=== PATIENT | male | born 1935 | race Caucasian/White ===

== ENCOUNTER → 2018-03-26 | Outpatient (CLI) | payer MEDICARE, BC ==
[2018-03-26 10:01] LABS: HCT 51.5 % (39.0-53.0); MCV 99.9 fL (80.0-100.0); Platelet Count 244 k/uL (150-450); RBC 5.15 m/uL (4.30-5.90); RDW 12.9 % (11.5-15.5); WBC 6.4 k/uL (3.8-10.6)
[2018-03-26 10:16] LABS: Calcium 9.7 mg/dL (8.4-10.2); Partial Thromboplastin Time 24.8 sec (22.0-30.0); Potassium 4.5 mmol/L (3.5-5.1); Prothrombin Time 10.3 sec (9.0-12.0); Total Bilirubin 1.9 mg/dL (0.2-1.3); Total Protein 7.2 g/dL (6.3-8.2)
[2018-03-26 10:24] LABS: Appearance,Urine Clear (Clear); Bilirubin,Urine Negative (Negative); Blood,Urine Negative (Negative); Color,Urine Yellow; Glucose,Urine (UA) Negative (Negative); Ketones,Urine Negative (Negative); Leukocyte Esterase,Urine Trace (Negative); Mucus,Urine Few /hpf; Nitrite,Urine Negative (Negative); PH, Urine 5.5 (5.0-8.0); Protein,Urine Negative (Negative); RBC,Urine 1 /hpf (0-5); Specific Gravity,Urine 1.018 (1.001-1.035); Squamous Epithelial Cell,Urine 1 /hpf (0-4); Urobilinogen,Urine <2.0 mg/dL (<2.0); WBC,Urine 3 /hpf (0-5)
== END | disposition home or self-care (01) ==
LOC: LABPAT 08:40
PROVIDERS: ATTEND Orthopaedic Surgery
DX: Z01.818 Encounter for other preprocedural examination (principal); Z01.812 Encounter for preprocedural laboratory examination
CPT/HCPCS: 80053; 81001; 85027; 85610; 85730; 86850; 86900; 86901; 87070; 93005

== ENCOUNTER 2018-04-06 06:18 | Inpatient (IN) | payer MEDICARE, BC ==
[2018-04-01 08:37] VITALS: BMI 25.0
[~2018-04-06 06:18] MED LIST: ACETAMINOPHEN TAB 500 MG TAB PO ONE; DEXAMETHASONE SOD PHOSPHATE 10 MG/ML 1 ML VIAL IV ONE; LIDOCAINE 1% 20 ML VIAL (10MG/ML) FOR IV START INTRADERMA PRN; MELOXICAM 7.5 MG TAB PO ONE; MIDAZOLAM (PF) 2 MG/2 ML VIAL IV PRN; ONDANSETRON 4 MG/2 ML VIAL IVP ONE; ROPIVACAINE 246.25 MG, EPINEPHrine 0.5 MG, KETOROLAC 30 MG, cloNIDine HCL/PF 80 MCG, WA... MISCELLANE ONE; SCOPOLAMINE 1.5MG/72HR PATCH TRANSDERM ONE; TRANEXAMIC ACID 1,000 MG in SODIUM CHLORIDE 0.9% 50 ML IVPB ONE; ceFAZolin IN SWFI 2 GM/20 ML SYRINGE IVP ONE
[2018-04-06] MEDS: LACTATED RINGERS 1,000 ML IV SCH (08:00)
[2018-04-06] MEDS ORDERED: hydrOXYzine PAMOATE 25 MG CAP PO PRN (08:37)
[2018-04-06] MEDS ORDERED: NALOXONE 0.4 MG/ML 1 ML VIAL IV PRN (08:37)
[2018-04-06] MEDS ORDERED: MAGNESIUM HYDROXIDE 2,400 MG/10 ML CUP PO PRN (08:37)
[2018-04-06] MEDS ORDERED: DIAZEPAM 5 MG TAB PO PRN (08:37)
[2018-04-06] MEDS ORDERED: HYDROmorphone 0.5 MG/0.5 ML SYRINGE IVP PRN ×3 (08:37)
[2018-04-06] MEDS ORDERED: ONDANSETRON 4 MG/2 ML VIAL IVP PRN (08:37)
[2018-04-06] MEDS ORDERED: PROPOFOL 10 MG/ML 20 ML VIAL IV ONE (09:04)
[2018-04-06] MEDS ORDERED: MIDAZOLAM 2 MG/2 ML VIAL ONE (09:04)
[2018-04-06] MEDS ORDERED: ePHEDrine SULFATE/0.9% NACL/PF 50 MG/5 ML SYRINGE IV ONE (09:04)
[2018-04-06] MEDS ORDERED: PHENYLEPHRINE-0.9% NACL SYG 1 MG/10 ML SYRINGE ONE (09:04)
[2018-04-06] MEDS ORDERED: SODIUM CHLORIDE 0.9% 100 ML BAG ONE (09:04)
[2018-04-06] MEDS ORDERED: TRANEXAMIC ACID 1,000 MG/10 ML VIAL ONE (09:04)
[2018-04-06] MEDS ORDERED: ceFAZolin 3,000 MG in SODIUM CHLORIDE 0.9% IRRIGATIO 3,000 ML IRRIGATION ONE (09:36)
[2018-04-06] MEDS ORDERED: LACTATED RINGERS 1,000 ML IV ONE (09:40)
--- NOTE | 2018-04-06 10:31 | P.OP ---
Date of Procedure: 04/06/18 Preoperative Diagnosis: Severe osteoarthritis left hip Postoperative Diagnosis: Severe osteoarthritis left hip Procedure(s) Performed: Left total hip arthroplasty with a direct anterior approach Implants: Fry and nephew Polarstem size 5 standard Fry & Nephew R3, 3 hole acetabular shell, 56 mm Fry & Nephew reflection 6.5 mm cancellus screw, 20 mm 2 Fry & Nephew R3, XLPE 20 acetabular liner Fry & Nephew Oxinium femoral head 36 m, +4 All components were press-fit. The articulation is Oxinium on polyethylene. Anesthesia: spinal Surgeon: Celestino Willis Pole Tester #1: Elizabeth Seaman Estimated Blood Loss (ml): 200 (59 mL returned with Cell Saver) Pathology: other (Femoral head) Condition: stable Disposition: PACU Indications for Procedure: After failure of conservative treatment we discussed the surgical and nonsurgical treatment options at length. Patient wishes to proceed with a total hip arthroplasty with a direct anterior approach. Complications specific to this procedure were discussed at length, including but not limited to infection, leg length discrepancy, dislocation, and nerve injury. Patient is aware of all these complications and informed consent was obtained Operative Findings: The operative findings are consistent with severe osteoarthritis of the left hip Description of Procedure: Patient was seen and evaluated in the preoperative area, consent was reviewed, and the surgical site was marked with a skin marker. Patient was then brought to the operating room and given prophylactic antibiotics intravenously. 1 g of Tranexamic acid was also given. A spinal anesthetic was administered by the anesthesia department. The patient was then placed on the [place] table with the bony prominences well-padded. The hip area was then prepped and draped in usual sterile fashion. A universal timeout was then performed, which confirmed the patient's name, surgical site, ALLERGIES, and procedure being performed. Next the incision site was located at 1 cm distal and 1 cm lateral to the anterior superior iliac spine. The skin and subcutaneous tissues were sharply incised. Incision was carefully dissected down to the fascia overlying the tensor fascia madonna muscle. This fascia was then incised in line with the incision. Next, using blunt finger dissection, the tensor fascia madonna muscle was dissected off its investing fascia. The muscle was then carefully retracted laterally with a cobra retractor over the lateral neck of the femur. Next, the circumflex vessels were identified and cauterized using the AquaMantis device. The anterior hip capsule was then exposed. The capsule was then opened and an inverted T fashion. Cobra retractors were then placed intracapsularly. The proximal femur was then visualized. The femoral neck was then osteotomized appropriate level above the lesser trochanter. Small amount of traction was placed with the [place] table. A small wedge of bone was then removed from the remaining femoral head. Next, using a corkscrew femoral head was easily removed from the acetabulum. On gross visual inspection, the femoral head had complete loss of articular cartilage in multiple periarticular osteophytes. Attention was then turned to the acetabulum. the acetabulum was exposed and any remaining labrum was excised. Sequential reaming of the acetabulum was performed using fluoroscopic guidance. When the appropriate size was reached, a trial was then placed. The position and fit of the trial was checked with fluoroscopy. The trial was then removed. Then, using fluoroscopic guidance, the final implant was impacted at 20 of anteversion and 40 of abduction, and fully seated in the acetabulum. 2 screws were then placed in the acetabulum. Again fluoroscopy was used to check position of the screws. Next, the liner was then impacted, with a 20 elevated liner located in the anterior superior quadrant. Component locking was confirmed. Attention was then directed to the femur. With the aid of the [place] table, the femur was externally rotated to approximately 130, extended, and abducted under the opposite leg. A side hook was then placed under the proximal femur, and the side hook elevator was used to elevate the proximal femur. Retractors were then placed. A capsular release was performed, as well as a release of the conjoined tendon, which afforded excellent visualization of the proximal femur. Next, a box osteotome was used to lateralize the proximal femur. A hand tennis ball coverer was then used to locate the femoral canal. Sequential broaching was then performed with appropriate size which afforded excellent fixation in the proximal femur. A trial was then placed with appropriate head and neck, and the hip was gently reduced with the aid of the [place] table. Fluoroscopy was then used to check position of the components, as well as to ensure equal leg lengths. The hip was then gently dislocated and the trials were then removed. Final implants were then impacted and the hip was again reduced. Final fluoroscopic x-rays confirmed that the components were in anatomic position, as well as equal leg lengths. The hip was also taken through range of motion, and found to be stable. The hip was then copiously irrigated with antibiotic solution with pulsatile lavage. The hip was then irrigated with Irrisept solution. The soft tissues were then injected with a ropivacaine solution, which consisted of 246.25 mg of ropivacaine, 0.5 mg of epinephrine, 30 mg of Toradol, 80 g of clonidine, and 48.45 mL of sterile water, for a total of 100 mL of fluid injected. A second dose of 1 g of Tranexamic acid was also given. the fascia was then closed with 2-0 strata fix suture. The subcutaneous tissue was closed with 3-0 Vicryl. The subcuticular tissue was closed with 3-0 strata fix suture. The skin was then closed with Dermabond glue and a sterile silver dressing. The patient was then transferred to the recovery room in stable condition. The event sales assistant MARTHA Quintero was required due to the complexity of surgery, and the need for skilled surgical aides teacher for positioning, draping, exposure, retraction, and closure of the wound.
[2018-04-06] MEDS: HYDROmorphone 0.5 MG/0.5 ML SYRINGE IVP PRN ×2 (11:22→11:28)
--- NOTE | 2018-04-06 11:22 | XR ---
EXAMINATION TYPE: XR Hip Limited LT DATE OF EXAM: 04/06/2018 COMPARISON: NONE HISTORY: 82-year-old male status post hip surgery, assess surgical alignment TECHNIQUE: Single AP view FINDINGS: Image shows placement of left hip total arthroplasty. Both acetabular cup and femoral short stemmed c omponents of the prosthesis appear well seated without periprosthetic fracture. Alignment grossly regi tomic. There is soft tissue air compatible with recent operation. IMPRESSION: Uncomplicated postoperative appearance left total hip arthroplasty.
[2018-04-06] MEDS ORDERED: diphenhydrAMINE 50 MG/ML 1 ML VIAL IVP ONE (11:47)
[2018-04-06] MEDS ORDERED: fentaNYL (PF) 50 MCG/ML 2 ML AMP IVP ONE (11:50)
--- NOTE | 2018-04-06 12:53 | FL ---
EXAMINATION TYPE: FL guidance operating room, XR Hip Limited LT DATE OF EXAM: 04/06/2018 COMPARISON: NONE HISTORY: 82-year-old male left hip arthroplasty FINDINGS: 2 intraoperative fluoroscopic images during left hip total arthroplasty. Fluoroscopy time of 42 seconds was used during left hip arthroplasty. 2 image/s document/s [email or web address] [email or web address]. IMPRESSION: Intraoperative fluoroscopy as above.
[2018-04-06] MEDS: SODIUM CHLORIDE 0.9% 1,000 ML IV SCH ×2 (13:43→23:51)
[2018-04-06] MEDS: ceFAZolin IN SWFI 2 GM/20 ML SYRINGE IVP SCH ×2 (15:57→23:50)
[2018-04-06] MEDS: ASPIRIN 325 MG TAB PO SCH (22:07)
[2018-04-06] MEDS: SENNOSIDES-DOCUSATE SODIUM 1 EACH TAB PO SCH (22:07)
[2018-04-07] MEDS: LACTATED RINGERS 1,000 ML IV SCH (04:31)
[2018-04-07] MEDS: HYDROcodone/APAP 5-325MG 1 EACH TAB PO PRN ×2 (07:53→14:38)
--- NOTE | 2018-04-07 08:34 | P.PN ---
Subjective Progress Note Date: 04/07/18 This is an 82-year-old male who is status post left total hip arthroplasty. This is postoperative day #1. Patient is seen and evaluated at bedside with Dr. Celestino Willis. Patient states that his pain is under control today and he has been up and walking. Patient denies any fever/chills, numbness, weakness, tingling, abdominal pain, shortness of breath or chest pain. Objective - Vital Signs Vital signs: Vital Signs Temp 98.1 F 04/07/18 07:17 Pulse 82 04/07/18 07:17 Resp 18 04/07/18 07:17 BP 125/78 04/07/18 07:17 Pulse Ox 92 L 04/07/18 07:17 Intake & Output 04/06/18 04/07/18 04/07/18 18:59 06:59 18:59 Intake Total 2801 400 Output Total 200 Balance 2601 400 Weight 83.915 kg Intake: IV 2801 Intake, IV Titration 400 Amount Sodium Chloride 0.9% 1, 400 000 ml @ 65 mls/hr IV . [id number] [facility] Rx#:[id number] Output: Estimated Blood Loss 200 Other: Voiding Method Toilet # Voids 1 - Exam Vital signs are stable. Patient is in no acute distress and is alert and oriented 3. Calf is soft and nontender to palpation. Dressing is clean, dry, and intact. Patient has full foot and ankle motion without pain or difficulty. Neurovascular status and circulatory status are intact. Assessment and Plan (1) Primary osteoarthritis of left hip Current Visit: Yes Status: Acute Code(s): M16.12 - UNILATERAL PRIMARY OSTEOARTHRITIS, LEFT HIP SNOMED Code(s): 605471807 (2) Status post total hip replacement, left Current Visit: Yes Status: Acute Code(s): Z96.642 - PRESENCE OF LEFT ARTIFICIAL HIP JOINT SNOMED Code(s): 921985423263 Plan: Continue routine postop care. Continue antocoagulation with aspirin. Weightbearing as tolerated with a walker Leave dressing in place for 10 days. Patient is awaiting ECF placement.
[2018-04-07] MEDS: MELOXICAM 7.5 MG TAB PO SCH (09:56)
[2018-04-07] MEDS: ASPIRIN 325 MG TAB PO SCH ×2 (09:56→20:23)
[2018-04-07 10:58] LABS: Basophils % (A) 0 %; Eosinophils # (A) 0.1 k/uL (0-0.7); Eosinophils % (A) 1 %; HCT 41.3 % (39.0-53.0); Lymphocytes # (A) 0.8 k/uL (1.0-4.8); Lymphocytes % (A) 10 %; MCH 32.4 pg (25.0-35.0); MCHC 32.8 g/dL (31.0-37.0); MCV 99.1 fL (80.0-100.0); Mean Platelet Volume 7.5; Monocytes # (A) 0.7 k/uL (0-1.0); Monocytes % (A) 8 %; Neutrophils # (A) 6.4 k/uL (1.3-7.7); Neutrophils % (A) 80 %; Platelet Count 206 k/uL (150-450); RBC 4.17 m/uL (4.30-5.90); RDW 12.8 % (11.5-15.5)
[2018-04-07 11:23] LABS: HGB 13.5 gm/dL (13.0-17.5)
[2018-04-07] MEDS: SODIUM CHLORIDE 0.9% 1,000 ML IV SCH (18:46)
[2018-04-07] MEDS: SENNOSIDES-DOCUSATE SODIUM 1 EACH TAB PO SCH (20:23)
[2018-04-07] MEDS: ZOLPIDEM 5 MG TAB PO SCH (21:37)
[2018-04-08] MEDS: HYDROcodone/APAP 5-325MG 1 EACH TAB PO PRN ×2 (01:34→07:19)
[2018-04-08] MEDS: LACTATED RINGERS 1,000 ML IV SCH (03:50)
[2018-04-08] MEDS: MELOXICAM 7.5 MG TAB PO SCH (07:18)
[2018-04-08] MEDS: ASPIRIN 325 MG TAB PO SCH ×2 (07:18→20:31)
[2018-04-08] MEDS: SODIUM CHLORIDE 0.9% 1,000 ML IV SCH ×2 (07:19→23:23)
--- NOTE | 2018-04-08 07:45 | P.PN ---
Subjective Progress Note Date: 04/08/18 This is an 82-year-old male who is status post left total hip arthroplasty. This is postoperative day #2. Patient is seen and evaluated at bedside. Patient does report pain in the left hip today. Patient denies any new complaints. Patient denies any fever/chills, numbness, weakness, tingling, abdominal pain, shortness of breath or chest pain. Objective - Vital Signs Vital signs: Vital Signs Temp 97.8 F 04/08/18 01:30 Pulse 89 04/08/18 01:30 Resp 16 04/08/18 01:30 BP 126/75 04/08/18 01:30 Pulse Ox 92 L 04/08/18 01:30 Intake & Output 04/07/18 04/08/18 04/08/18 18:59 06:59 18:59 Intake Total 100 830 Balance 100 830 Intake: Intake, IV Titration 100 Amount Sodium Chloride 0.9% 1, 100 000 ml @ 65 mls/hr IV . [id number] [facility] Rx#:[id number] Oral 830 Other: Voiding Method Toilet # Voids 1 - Exam Vital signs are stable. Patient is in no acute distress and is alert and oriented 3. Calf is soft and nontender to palpation. Dressing is clean, dry, and intact. Patient has full foot and ankle motion without pain or difficulty. Neurovascular status and circulatory status are intact. - Labs CBC & Chem 7: 04/07/18 10:36 Labs: Abnormal Lab Results - Last 24 Hours (Table) 04/07/18 Range/Units 10:36 RBC 4.17 L (4.30-5.90) m/uL Lymphocytes # 0.8 L (1.0-4.8) k/uL Assessment and Plan (1) Primary osteoarthritis of left hip Current Visit: Yes Status: Acute Code(s): M16.12 - UNILATERAL PRIMARY OSTEOARTHRITIS, LEFT HIP SNOMED Code(s): 868826068 (2) Status post total hip replacement, left Current Visit: Yes Status: Acute Code(s): Z96.642 - PRESENCE OF LEFT ARTIFICIAL HIP JOINT SNOMED Code(s): 302787679661 Plan: Continue routine postop care. Continue antocoagulation with aspirin. Weightbearing as tolerated with a walker. Leave dressing in place for 10 days. Patient is awaiting ECF placement.
[2018-04-08] MEDS: ZOLPIDEM 5 MG TAB PO SCH (20:31)
[2018-04-08] MEDS: SENNOSIDES-DOCUSATE SODIUM 1 EACH TAB PO SCH (20:31)
[2018-04-09] MEDS: LACTATED RINGERS 1,000 ML IV SCH (06:10)
[2018-04-09 07:11] LABS: Basophils % (A) 0 %; Eosinophils # (A) 0.4 k/uL (0-0.7); Eosinophils % (A) 4 %; HCT 40.1 % (39.0-53.0); HGB 12.7 gm/dL (13.0-17.5); Lymphocytes % (A) 12 %; MCH 31.3 pg (25.0-35.0); MCHC 31.7 g/dL (31.0-37.0); MCV 98.7 fL (80.0-100.0); Mean Platelet Volume 7.3; Monocytes # (A) 0.8 k/uL (0-1.0); Monocytes % (A) 8 %; Neutrophils # (A) 6.6 k/uL (1.3-7.7); Neutrophils % (A) 74 %; Platelet Count 234 k/uL (150-450); RBC 4.06 m/uL (4.30-5.90); RDW 12.8 % (11.5-15.5)
[2018-04-09] MEDS: SODIUM CHLORIDE 0.9% 1,000 ML IV SCH (07:55)
[2018-04-09] MEDS: MELOXICAM 7.5 MG TAB PO SCH (08:20)
[2018-04-09] MEDS: ASPIRIN 325 MG TAB PO SCH ×2 (08:21→21:25)
--- NOTE | 2018-04-09 09:20 | P.DS ---
Providers Date of admission: 04/06/18 06:18 Expected date of discharge: 04/09/18 Attending physician: Celestino Willis Consults: 04/06/18 08:37 Consult Physician Routine Consulting Provider: Herbert Grullon Consult Reason/Comments: medical management Do you want consulting provider notified?: Yes Primary care physician: Herbert Grullon - Discharge Diagnosis(es) (1) Primary osteoarthritis of left hip Current Visit: Yes Status: Acute (2) Status post total hip replacement, left Current Visit: Yes Status: Acute Hospital Course: This is an 82-year-old male with known history of degenerative arthritis of the left hip. The patient presents for evaluation. After discussion and consideration patient elects to proceed with total hip arthroplasty. The patient is seen preoperatively by Dr. Willis and medically cleared for surgery by their primary care physician. Patient is admitted to [facility] on 04/06/2018 for total hip arthroplasty. The procedures performed without complication or sequelae. The patient is doing well postoperatively. Labs and vital signs are stable on day of discharge. On day of discharge patient's hip incision is healing well. There is minimal erythema. There is no drainage noted at this time. There is minimal soft tissue swelling to the hip and thigh. Patient has full foot and ankle motion without difficulty or pain. Neurovascular status to the left lower extremity is intact. Patient is discharged to rehab in good condition. Please see med rec for accurate list of home medications. Plan - Discharge Summary Discharge Rx Participant: Yes New Discharge Prescriptions: New Aspirin 325 mg PO BID #60 tab HYDROcodone/APAP 5-325MG [Humble 5-325] 1 - 2 tab PO Q4-6H PRN #84 tab PRN Reason: Pain Sennosides [Senokot] 1 tab PO BID #60 tablet No Action Lisinopril [Zestril] 5 mg PO QAM Diclofenac Sodium [Diclofenac Sodium ER] 100 mg PO DAILY PRN PRN Reason: Pain Aspirin [Adult Low Dose Aspirin EC] 81 mg PO DAILY Discharge Medication List Aspirin [Adult Low Dose Aspirin EC] 81 mg PO DAILY 04/01/18 [History] Diclofenac Sodium [Diclofenac Sodium ER] 100 mg PO DAILY PRN 04/01/18 [History] Lisinopril [Zestril] 5 mg PO QAM 04/01/18 [History] Aspirin 325 mg PO BID #60 tab 04/08/18 [Rx] HYDROcodone/APAP 5-325MG [Humble 5-325] 1 - 2 tab PO Q4-6H PRN #84 tab 04/08/18 [ Rx] Sennosides [Senokot] 1 tab PO BID #60 tablet 04/08/18 [Rx] Follow up Appointment(s)/Referral(s): Celestino Willis DO [Doctor of Osteopathic Medicine] - 2 Weeks Activity/Diet/Wound Care/Special Instructions: Weightbearing as tolerated with walker. Leave dressing intact. Dressing may be removed by home care nurse in 10 days. May shower with dressing on. Please follow-up with [facility] in 2 weeks and call with any questions or concerns, . Discharge Disposition: HOME WITH HOME HEALTH SERVICES
[2018-04-09] MEDS: HYDROcodone/APAP 5-325MG 1 EACH TAB PO PRN (12:10)
[2018-04-09] MEDS: SENNOSIDES-DOCUSATE SODIUM 1 EACH TAB PO SCH (21:16)
[2018-04-09] MEDS: ZOLPIDEM 5 MG TAB PO SCH (21:25)
[2018-04-09 23:25] VITALS: RESP 16
[2018-04-09] MEDS: FAMOTIDINE 20 MG TAB PO SCH (23:26)
[2018-04-10] MEDS: HYDROcodone/APAP 5-325MG 1 EACH TAB PO PRN ×2 (05:46→11:29)
[2018-04-10] MEDS: LACTATED RINGERS 1,000 ML IV SCH (05:46)
[2018-04-10] MEDS: SODIUM CHLORIDE 0.9% 1,000 ML IV SCH (05:46)
--- NOTE | 2018-04-10 08:59 | CONS ---
CONSULTATION DATE OF CONSULTATION: April 09, 2018. REASON FOR CONSULTATION: Medical management requested by Dr. Willis. CONSULTATION: This morning I was informed about the patient's consultation and then I went to see the patient and it dropped off my list. This patient was admitted and underwent a left total hip arthroplasty. Post procedure patient has some in the operative site. Just feels tired, run down. No nausea, vomiting. The patient has not slept for 2 or 3 days since being up for last couple days at least since being in the hospital. After taking his pain medication, he feels a little bit rundown, not much of an appetite. No nausea, vomiting. No fever. No chills. Denies any cardiac history. REVIEW OF SYSTEMS: CONSTITUTIONAL: Tired. HEENT: None. RESPIRATORY none. CARDIOVASCULAR: None. GASTROINTESTINAL: As above. GENITOURINARY: None. MUSCULOSKELETAL: Arthritic pain in joints. DERMATOLOGICAL, HEMATOLOGIC, LYMPHATIC: none. PSYCHIATRY: None. NEUROLOGICAL: None. PAST MEDICAL HISTORY: Hypertension, osteoarthritis, prostate cancer, recent right shoulder pain. PAST SURGICAL HISTORY: Appendectomy, hernia repair, prostate surgery, growth removed from inside his mouth. SOCIAL HISTORY: Does not smoke or drink alcohol. Lives by himself. FAMILY HISTORY: Reviewed. Noncontributory to presentation. HOME MEDICATIONS: 1. Zestril 5 mg p.o. daily. 2. Senokot 1 tablet p.o. b.i.d. 3. Mcgraws does not take at home. 4. Aspirin 81 mg a day. ALLERGIES: None. EXAMINATION: VITAL SIGNS: Temperature 98, pulse 54, respiratory 18, blood pressure 120/78, pulse ox 96% on room air. GENERAL APPEARANCE: Average build, lying in bed, comfortable, tired-appearing. EYES: Pupils equal. Conjunctivae normal. HEENT: External appearance of nose and ears normal. Oral cavity normal. NECK: JVD not raised. Mass not palpable. RESPIRATORY: Effort normal. LUNGS: Fair entry. CARDIOVASCULAR: First and second sounds normal. No edema. ABDOMEN: Soft, nontender. Liver and spleen not palpable. LYMPHATICS: No lymph nodes palpable in the neck and axilla. PSYCHIATRY: Alert and oriented x3. Mood and affect slightly tired-appearing. NEUROLOGICAL: Pupils equal. Cranial nerves grossly intact. Power and sensation grossly intact. MUSCULOSKELETAL: Evidence of osteoarthritis especially in the hands. Dressing over the left thigh. INVESTIGATIONS: White count 9, hemoglobin 12.7. ASSESSMENT: 1. Left total hip arthroplasty. 2. Primary osteoarthritis. 3. Essential hypertension. 4. Acute sleep deprivation, multifactorial from being in the hospital, causing the patient to be tired. 5. Dyspepsia, could be from patient taking aspirin. PLAN: Patient was told to get some rest and get a good sleep, which often times difficult in the hospital. Did explain to him the same. Will use Pepcid 20 mg twice a day for any dyspepsia. Thank you Dr. Willis. Patient did follow up with Dr. Grullon upon discharge. Copy Dr. Herbert Grullon. MMODL / IJN: [id number] /
[2018-04-10] MEDS: ASPIRIN 325 MG TAB PO SCH (09:06)
[2018-04-10] MEDS: FAMOTIDINE 20 MG TAB PO SCH (09:06)
[2018-04-10] MEDS: MELOXICAM 7.5 MG TAB PO SCH (09:06)
[2018-04-10 09:12] VITALS: BP 122/79; PULSE 68; TEMP 98.7
== END 2018-04-10 11:58 | DRG 470 ==
LOC: 2ORMAIN 06:18 → 4SSUR 10:41
PROVIDERS: ADMIT Orthopaedic Surgery; ATTEND Orthopaedic Surgery
PROC: 30233N0 Transfusion of Autologous Red Blood Cells into Peripheral Vein, Percutaneous Approach (ICD-10-PCS; 2018-04-06)
PROC: 0SRB06A Replacement of Left Hip Joint with Oxidized Zirconium on Polyethylene Synthetic Substitute, Uncemented, Open Approach (ICD-10-PCS; principal; 2018-04-06 09:10)
DX: M16.12 Unilateral primary osteoarthritis, left hip (principal); I10 Essential (primary) hypertension; M19.042 Primary osteoarthritis, left hand; M19.041 Primary osteoarthritis, right hand; H91.90 Unspecified hearing loss, unspecified ear; R10.13 Epigastric pain; Z79.82 Long term (current) use of aspirin; Z72.820 Sleep deprivation; Z79.899 Other long term (current) drug therapy; Z85.46 Personal history of malignant neoplasm of prostate; Z90.79 Acquired absence of other genital organ(s); Z82.49 Family history of ischemic heart disease and other diseases of the circulatory system
CPT/HCPCS: 73501; 85025; 86850; 86891; 86900; 86901; 88300; 94760

== ENCOUNTER → 2019-02-02 | Outpatient (CLI) | payer MEDICARE, BC ==
[2019-02-02 11:17] LABS: Appearance,Urine Clear (Clear); Bilirubin,Urine Negative (Negative); Blood,Urine Negative (Negative); Color,Urine Yellow; Glucose,Urine (UA) Negative (Negative); Hyaline Casts,Urine 1 /lpf (0-2); Ketones,Urine Negative (Negative); Leukocyte Esterase,Urine Trace (Negative); Mucus,Urine Occasional /hpf; Nitrite,Urine Negative (Negative); PH, Urine 5.5 (5.0-8.0); Protein,Urine Negative (Negative); RBC,Urine 2 /hpf (0-5); Specific Gravity,Urine 1.026 (1.001-1.035); Squamous Epithelial Cell,Urine 1 /hpf (0-4); Urobilinogen,Urine <2.0 mg/dL (<2.0); WBC,Urine 2 /hpf (0-5)
[2019-02-02 11:27] LABS: Albumin 3.8 g/dL (3.5-5.0); Calcium 9.7 mg/dL (8.4-10.2); Potassium 4.7 mmol/L (3.5-5.1); Total Bilirubin 1.3 mg/dL (0.2-1.3); Total Protein 6.8 g/dL (6.3-8.2)
[2019-02-02 11:48] LABS: INR 0.9 (<1.2); Partial Thromboplastin Time 24.4 sec (22.0-30.0)
[2019-02-02 12:23] LABS: HCT 51.5 % (39.0-53.0); HGB 16.1 gm/dL (13.0-17.5); MCHC 31.2 g/dL (31.0-37.0); MCV 102.7 fL (80.0-100.0); Macrocytosis Slight; Platelet Count 274 k/uL (150-450); RBC 5.02 m/uL (4.30-5.90); WBC 6.7 k/uL (3.8-10.6)
== END | disposition home or self-care (01) ==
LOC: LABPAT 10:04
PROVIDERS: ATTEND Orthopaedic Surgery
DX: Z01.812 Encounter for preprocedural laboratory examination (principal); Z79.01 Long term (current) use of anticoagulants
CPT/HCPCS: 36415; 80053; 81001; 85027; 85610; 85730; 87070